=== PATIENT | male | born 1960 | race Caucasian/White ===

== ENCOUNTER → 2017-01-11 08:07 | Outpatient (CLI) | payer MEDICARE ==
[2016-04-20 12:29] VITALS: BMI 24.4
[~2017-01-11 08:07] MED LIST: BAYER CHEWABLE81 MG PO; CORDARONE200 MG PO; FUROSEMIDE40 MG PO; GEMFIBROZIL600 MG PO; HYDROCODONE-APA1 TAB PO; KLOR-CON 1010 MEQ PO; LOPRESSOR25 MG PO; NEURONTIN 300300 MG PO; REMERON15 MG PO; TRIAMCINOLONE A17 GM NASAL; XANAX0.5 MG PO
== END | disposition home or self-care (01) ==
LOC: D.CT 08:07
DX: K43.9 Ventral hernia without obstruction or gangrene (principal)

== ENCOUNTER → 2018-06-06 07:30 | Outpatient (CLI) | payer MEDICARE ==
[~2018-06-06] VITALS: Ht 175.3 cm; Wt 90.9 kg
--- NOTE | ~2018-06-06 | HEMODYNAMI ---
PATIENT:COLLEEN CHASE JR MEDICAL RECORD: [id number] : 56 LOCATION:[facility] ADMISSION DATE: 06/06/18 Generatedon:06/06/201810:39 Patient name: COLLEEN CHASE Patient #: [id number] SSN: : 1960 Date of study: 06/06/2018 Page: Of Hemodynamic Procedure Report Patient Data Patient Demographics Procedure consent was obtained First Name: COLLEEN Gender: Male Last Name: SALVATORE Suffix: [facility] Initial: JI : 1960 Patient #: [id number] Age: 57 year(s) Race: Unknown Additional ID: [id number] Contact details [address]: [address] [place] [address] State: [place] City: [place] Zip code: [address] Past Medical History Allergies Allergen Reaction Date Comments Reported Other allergy 12/08/2014 Keflex Statins 12/08/2014 Other allergy 06/06/2018 KEFLEX, VANCOMYCIN, STATINS-HMG COA REDUCTASE INHIBITORS Admission Admission Data Admission Date: 06/06/2018 Admission Time: 7:30 Lab Results Lab Result Date: 06/06/2018 Lab Result Time: 0:00 Biochemistry Name Units Result Min Max BUN mg/dl 11 --(-*--)-- 7 18 Creatinine mg/dl 0.9 --(-*--)-- 0.6 1.3 CBC Name Units Result Min Max Hemoglobin g/dl 15.7 --(--*-)-- 13.5 17.5 Procedure Procedure Types Cath Procedure Diagnostic Procedure LHC LHC w/Coronaries FFR/IVUS Intra-Coronary IVUS Initial Procedure Description Procedure Date Procedure Date: 06/06/2018 Procedure Start Time: 10:21 Procedure End Time: 10:37 Procedure Staff Name Function Hiro Gillis MD Performing Physician Stewart Medina RN Nurse Angelita Vallejo RT Monitor Aubrie Lara RT Scrub Procedure Data Cath Procedure Fluoroscopy Diagnostic fluoroscopy Total fluoroscopy Time: 3.9 time: 3.9 min min Diagnostic fluoroscopy Total fluoroscopy dose: dose: 1138 mGy 1138 mGy Contrast Material Contrast Material Type Amount (ml) Isovue 300 57 Entry Location Entry Primary Successful Side Size Upsize Upsize Entry Closure Mcgarry ccessful Closure Location (Fr) 1 (Fr) 2 (Fr) Remarks Device Remarks Radial Right 6 Fr Mechanical tr artery Short Compression Estimated blood loss: 10 ml Diagnostic catheters Device Type Used For End Catheter Placement DIAGNOSTIC [place] 110cm 5 Procedure Fr catheter ([id number]) DIAGNOSTIC AR 2 MOD 5 Fr Procedure catheter ([id number]) Procedure Complications No complications Procedure Medications Medication Administration Route Dosage Oxygen etCO2 Nasal cannula 2 l/min Lidocaine 2% added to field 20 Heparin Flush Bag added to field 2 bags (1000units/500ml NS) 0.9% NaCl I.V. 100 ml/hr Radial Cocktail I.A. 1 syringe (Verapomil 2mg/Nitro 400mcg/Heparin 1500units) Versed I.V. 2 mg Fentanyl I.V. 100 mcg Versed I.V. 2 mg Fentanyl I.V. 100 mcg Versed I.V. 1 mg Fentanyl I.V. 50 mcg Hemodynamics Rest HGB: 15.7 (g/dl) Heart Rate: 82 (bpm) Snapshots Pre Cath Intra NCS Post Cath Vital Signs Time Heart Resp SPO2 etCO2 NIBP (mmHg) Rhythm Pain Sedation Rate (ipm) (%) (mmHg) Status Level (bpm) 9:58:18 79 20 92 13.5 150/99(126) NSR 0 (11) 10(A) , No pain 10:02:13 70 14 94 32.3 148/98(117) NSR 0 (11) 10(A) , No pain 10:06:09 69 13 92 32.3 140/101(123) NSR 0 (11) 10(A) , No pain 10:10:05 69 12 94 17.2 145/98(121) NSR 0 (11) 10(A) , No pain 10:14:00 69 20 94 34.5 144/96(120) NSR 0 (11) 10(A) , No pain 10:17:56 69 17 93 25.5 142/95(119) NSR 0 (11) 10(A) , No pain 10:21:49 68 13 93 33 147/101(131) NSR 0 (11) 10(A) , No pain 10:25:43 68 16 92 16.5 140/99(118) NSR 0 (11) 9(A) , No pain 10:29:40 67 19 94 25.5 146/91(116) NSR 0 (11) 9(A) , No pain 10:33:40 66 19 93 16.5 136/90(108) NSR 0 (11) 9(A) , No pain 10:37:40 68 18 94 27.8 135/89(117) NSR 0 (11) 10(A) , No pain Medications Time Medication Route Dose Verified Delivered Reason Notes Effectiveness by by 9:57:07 Oxygen etCO2 2 l/min Hiro Buffie used for Nasal Carlin Medina RN procedure cannula 9:57:15 Lidocaine 2% added 20ml Hiro Hiro for local to vial Carlin Gillis MD anesthetic field 9:57:22 Heparin Flush added 2 bags Hiro Bosch used for Bag to Carlin Gillis MD procedure (1000units/500ml field NS) 9:57:31 0.9% NaCl I.V. 100 Hiro Buffie Per ml/hr Carlin Medina RN physician 10:19:28 Versed I.V. 2 mg Hiroradha Grantie for sedation Carlin Medina RN 10:19:33 Fentanyl I.V. 100 mcg Hiro Buffie for sedation Carlin Medina RN 10:22:48 Radial Cocktail I.A. 1 Hiro Hiro for (Verapomil syringe Carlin Gillis MD vasodilation 2mg/Nitro 400mcg/Heparin 1500units) 10:23:19 Versed I.V. 2 mg Hiro Buffie for sedation Carlin Medina RN 10:23:23 Fentanyl I.V. 100 mcg Hiro William for sedation Cralin Medina RN 10:26:48 Versed I.V. 1 mg Hiro Buffie for sedation Carlin Medina RN 10:26:53 Fentanyl I.V. 50 mcg Hiro Buffie for sedation Carlin Medina RN Procedure Log Time Note 9:17:28 Signed procedure consent form obtained from patient. 9:17:29 Time tracking: Regular hours (M-F 7:00 - 5:00) 9:17:33 Plan of Care:Hemodynamics will remain stable., Cardiac rhythm will remain stable., Comfort level will be maintained., Respiratory function will remain adequate., Patient/ family verbilizes understanding of procedure., Procedure tolerated without complication., Recovers from procedure without complications.. 9:23:05 Lab Result : BUN 11 mg/dl 9:23:05 Lab Result : Hemoglobin 15.7 g/dl 9:23:05 Lab Result : Creatinine 0.9 mg/dl 9:35:39 Patient allergic to Other allergyKEFLEX, VANCOMYCIN, STATINS-HMG COA REDUCTASE INHIBITORS 9:37:47 Stewrat Medina RN sent for patient. Start room use. 9:45:31 Patient received from Pre/Post Procedure Room to CCL 2 Alert and oriented. Tansferred to table in Supine position. 9:45:32 Warm blankets applied, and tato hugger turned on for patient comfort. 9:45:32 Correct patient and procedure confirmed by team. 9:45:33 ECG and BP/O2 sat monitors applied to patient. 9:57:07 Oxygen 2 l/min etCO2 Nasal cannula was administered by Stewart Medina RN; used for procedure; 9:57:15 Lidocaine 2% 20ml vial added to field was administered by Hiro Gillis MD; for local anesthetic; 9:57:22 Heparin Flush Bag (1000units/500ml NS) 2 bags added to field was administered by Hiro Gillis MD; used for procedure; 9:57:31 0.9% NaCl 100 ml/hr I.V. was administered by Stewart Medina RN; Per physician; 9:57:34 Vital chart was started 9:58:48 Baseline sample Acquired. 9:58:57 Rhythm: sinus rhythm 9:58:58 Full Disclosure recording started 9:59:08 H&P Date Dictated: 06/03/2018 Within 30 days and on chart., H&P Addendum completed by physician on day of procedure. (MUST COMPLETE FOR ALL OUTPATIENTS). 9:59:10 Pre-procedure instructions explained to patient. 9:59:12 Family in waiting room. 9:59:13 Patient NPO since Midnight. 9:59:17 Is the patient allergic to Iodine/contrast media? No. 9:59:27 Is patient on blood thinner?Yes 9:59:29 Was the patient premedicated? Yes 9:59:32 Patient diabetic? No. 9:59:37 Snore? Yes 9:59:39 Sleep apnea? No 9:59:49 Dentures? Yes IN TIGHT 9:59:56 Patient pain scale 0/10 ?. 10:00:02 IV patent on arrival in left forearm with 0.9% NaCl at [facility]. 10:00:09 Lab results completed and on chart. 10:00:13 Right Radial & Right Groin area was prepped with chlora-prep and draped in sterile fashion 10:00:14 Alarms reviewed by R. N. 10:00:15 Sharps counted by scrub and verified by R.N. 10:00:16 Physician paged 10:18:39 Physician arrived 10:18:39 --------ALL STOP TIME OUT------ 10:18:40 Final Timeout: patient, procedure, and site verified with staff and physician. All members of the team are in agreement. 10:18:42 Right Radial & Right Groin site verified by team. 10:18:46 Physical assessment completed. ASA score P 3 - A patient with severe systemic disease as per Hiro Gillis MD. 10:18:51 Sedation plan: IV Moderate Sedation Medication:Versed, Fentanyl 10:19:28 Versed 2 mg I.V. was administered by Stewart Medina RN; for sedation; 10:19:33 Fentanyl 100 mcg I.V. was administered by Stewart Medina RN; for sedation; 10:19:36 Use device set Radial Dx or PCI 10:19:37 ACIST Syringe (96180) opened to sterile field. 10:19:37 Medline Cath Pack ([id number]) opened to sterile field. 10:19:38 Bag Decanter (2002) opened to sterile field. 10:19:38 DIAGNOSTIC WIRE .035 260cm J wire (509762) opened to sterile field. 10:19:39 ACIST Hand Control (94596) opened to sterile field. 10:19:40 ACIST Manifold (22286) opened to sterile field. 10:19:40 Tegaderm 4 x 4 (1626W) opened to sterile field. 10:19:42 MBrace Wrist Support ([id number]) opened to sterile field. 10:19:48 SHEATH 6Fr Prelude Radial ([id number]) opened to sterile field. 10:21:14 Procedure started. 10:21:29 Local anesthetic to right radial artery with Lidocaine 2% by Hiro Gillis MD.INITIAL ACCESS ONLY 10:21:50 A 6 Fr Short sheath was inserted into the Right Radial artery 10:22:03 A DIAGNOSTIC [place] 110cm 5 Fr catheter (333675) was advanced over the wire and used for Procedure. 10:22:36 LV angiography performed. 10::48 Radial Cocktail (Verapomil 2mg/Nitro 400mcg/Heparin 1500units) 1 syringe I.A. was administered by Hiro Gillis MD; for vasodilation; 10:23:19 Versed 2 mg I.V. was administered by Stewart Medina RN; for sedation; 10::23 Fentanyl 100 mcg I.V. was administered by Stewart Medina RN; for sedation; 10::51 EF : 60 % 10:25:34 Catheter removed. 10:25:41 A DIAGNOSTIC AR 2 MOD 5 Fr catheter (714691U) was advanced over the wire and used for Procedure. 10:26:29 RCA angiography performed. 10::48 Versed 1 mg I.V. was administered by Stewart Medina RN; for sedation; 10::49 Catheter removed. 10::53 Fentanyl 50 mcg I.V. was administered by Stewart Medina RN; for sedation; 10:27:00 GUIDE 6FR XB 3.5 catheter ([id number]) opened to sterile field. 10:27:06 LCA angiography performed. 10:30:40 INFLATOR Merit BasixCompak (MR8490) opened to sterile field. 10:30:41 CHOICE PT Extra Support 182cm wire ([id number]) opened to sterile field. 10:30:43 [place] IVUS Catheter (68158O) opened to sterile field. 10:30:52 Proceeding to intervention. 10:31:05 6 Fr xb 3.5 guide catheter was inserted over the wire 10:31:11 cH pt ex wire advanced. 10:31:13 Wire advanced across lesion. 10:31:15 IVUS catheter advanced over wire. 10:33:25 IVUS catheter removed over wire. 10:33:34 Wire removed. 10:33:34 Guide catheter removed. 10:33:44 TR BAND Standard (QMU60SAE) opened to sterile field. 10:34:10 Sheath removed intact; hemostasis achieved with Mechanical Compression to the Right Radial artery. 10:34:19 Procedure ended.(Physican Out) 10:34:43 Fluoroscopy time 03.90 minutes. 10:34:47 Fluoroscopy dose: 1138 mGy 10:34:47 Flurop Dose total: 1138 10:34:52 Contrast amount:Isovue 300 57ml. 10:34:58 TR band inflated with 11cc of air. 10:35:18 Insertion/operative site no bleeding no hematoma. 10:35:35 Post-op/insertion site Right Radial artery dressed using a 4 x 4 and Tegaderm. 10:35:38 Post Procedure Pulses reassessed and unchanged 10:35:44 Post-procedure physical assessment completed. ASA score P 2 - A patient with mild systemic disease as per Hiro Gillis MD. 10:35:51 Post procedure rhythm: sinus rhythm 10:35:54 Estimated blood loss: 10 ml 10:36:16 Procedure type changed to Cath procedure, Diagnostic procedure, LHC, LHC w/Coronaries, FFR/IVUS, Intra-Coronary IVUS Initial 10:36:18 Procedure and supply charges have been captured, reviewed, submitted and are correct. 10:36:52 Procedure Complication : No complications 10:36:55 Vital chart was stopped 10:36:56 See physician's report for complete and final results. 10:37:05 Report given to Pre/Post Procedure Room. 10:37:08 Patient transfered to Pre/Post Procedure Room with Stretcher. 10:37:11 Procedure ended. 10:37:11 Full Disclosure recording stopped 10:37:16 End room use (Document Last) Device Usage Item Name Manufacture Quantity Catalog Number Hospital Part Current M inimal Lot# / Charge Number Stock Stock Serial# Code ACIST Syringe Acist 1 31684 313602 462838 672562 2 0 (76096) Medical [employer] Inc Medline Cath Cardinal 1 [id number] 507285 28779 310438 5 Pack Health ([id number]) Bag Decanter Microtek 1 613479 17689 887176 5 () Medical Inc. DIAGNOSTIC WIRE [place] 1 529322 762995 404448 784289 3 0 .035 260cm J wire (649848) ACIST Hand Acist 1 51020 745532 785502 631717 5 Control (96811) Medical Systems Inc ACIST Manifold Acist 1 80876 648725 977870 563457 5 (36981) Medical Systems Inc Tegaderm 4 x 4 3M 1 1626W 086597 842267 317728 5 (1626W) MBrace Wrist Advanced 1 140-0250-00 449571 20236 021184 5 Support Vascular (185955033) Dynamics SHEATH 6Fr Merit 1 [id number] 086262 579616 442803 5 Prelude Radial Medical ([id number]) DIAGNOSTIC Terumo 1 40-5013 889640 696844 434967 5 [place] 110cm 5 Fr catheter (175962) DIAGNOSTIC AR 2 Cardinal 1 [id number] 248662 111385 180827 2 0 MOD 5 Fr Health catheter (825670Q) GUIDE 6FR XB Cardinal 1 [id number] 597240 610724 555584 2 3.5 catheter Health (47168576) INFLATOR Merit Merit 1 SC3206 279718 607927 260570 1 5 Holographic Projection for Architecture (AE9326) CHOICE PT Extra [place] 1 [id number] 171554 687304 401655 5 Support 182cm Scientific wire (7554631G2) [place] 1 74003J 070993 879539 901027 8 [place] IVUS Catheter (20180A) TR BAND Terumo 1 [id number] 003177 033570 291032 4 0 Standard ([id number]) Signature Audit [place] Stage Time Signature Unsigned Intra-Procedure 06/06/2018 Angelita Vallejo 10:39:37 AM RT(R) Signatures Monitor : Angelita Vallejo Signature : RT Date : Time : [facility] [address] [place] [address]
--- NOTE | ~2018-06-06 | OP ---
PATIENT NAME: COLLEEN CHASE JR MEDICAL RECORD: [id number] :56 LOCATION:D.CAT ADMISSION DATE: SURGEON: MILLRE LOMBARDO MD DATE OF OPERATION: 06/06/2018 PROCEDURES: 1. Left heart catheterization. 2. Selective coronary angiography. 3. Left ventriculogram. 4. Intravascular ultrasound. INDICATION: Chest pain compatible with angina and coronary artery disease. PROCEDURE IN DETAIL: After informed consent was obtained and after a detailed description of risks, benefits as well as alternative therapies, the patient elected to proceed with angiogram and angioplasty. The right radial area was prepped and draped in normal sterile fashion. Right radial artery was cannulated via modified Seldinger technique with placement of 6-Azeri sheath. All catheters exchanged through this sheath. FINDINGS: The left ventriculogram was performed in standard 30-degree PAL view, reveals good cardiac wall motion throughout all segments. Overall ejection fraction estimated 60%. SELECTIVE CORONARY ANGIOGRAPHY: 1. Left main is with no significant angiographic disease. 2. Left anterior descending has a questionable area of stenosis in the proximal vessel; however, intravascular ultrasound reveals this is no greater than 20% to 30%. 3. Left circumflex has moderate irregularities, but no flow-limiting stenosis. 4. Right coronary artery has moderate irregularities, but no flow-limiting stenosis. OVERALL IMPRESSION: Minimal coronary artery disease is present. No flow-limiting stenosis. Continue medical management of the cardiac risk factors. TRANSINT:[id number] Voice Confirmation ID: [id number] DOCUMENT ID: [id number] MILLER LOMBARDO MD at 1816 CC: [id number] DICTATION DATE: 06/06/18 1037 WHARF TALLY CLERK: 06/06/18 1058 [facility] [address] [place] [id number]
[~2018-06-06 07:30] MED LIST changes: +BETAPACE 120 M120 MG PO; +FISH OIL 1,2001 CAP PO; +PLAVIX75 MG PO; +TOPROL XL25 MG PO
[2018-06-06 07:53] LABS: BASOPHILS 0.6 % (0-2); EOSINOPHILS 2.6 % (0-7); HEMATOCRIT 45.3 % (42.0-54.0); HEMOGLOBIN 15.7 g/dL (13.5-17.5); IMMATURE GRANULOCYTES 0.3 % (0-5); MCH 34.2 pg (26.0-34.0); MCHC 34.7 g/dL (31.0-37.0); MCV 98.7 fL (80.0-100.0); MEAN PLATELET VOLUME 10.3 fL (7.4-10.4); MONOCYTES 7.6 % (2-11); NEUTROPHILS 42.9 % (40-80); RBC 4.59 10x6/uL (4.20-6.10); RDW 13.2 % (11.5-14.5)
[2018-06-06 07:57] LABS: PLATELET COUNT 220 10x3/uL (130-400)
[2018-06-06 07:58] VITALS: BP 158/93; Ht 175.3 cm; Wt 90.9 kg
[2018-06-06 08:24] LABS: CALC OSMOLALITY 277 mosm/kg (275-300); CALCIUM 9.6 mg/dL (8.5-10.1); CARBON DIOXIDE 28.7 mmol/L (21.0-32.0); CHLORIDE - SERUM 102 mmol/L (98-107); CREATININE - SERUM 0.9 mg/dL (0.6-1.3); GLUCOSE 111 mg/dL (74-106); POTASSIUM - SERUM 4.3 mmol/L (3.5-5.1); SODIUM 139 mmol/L (136-145); UREA NITROGEN 11 mg/dL (7-18); eGFR NON AFRICAN AMERICAN > 90 mL/min (90-120)
== END | disposition home or self-care (01) ==
LOC: D.CATH 07:30
PROVIDERS: Internal Medicine Interventional Cardiology
DX: I25.10 Atherosclerotic heart disease of native coronary artery without angina pectoris (principal); Z01.812 Encounter for preprocedural laboratory examination

== ENCOUNTER → 2018-11-14 11:39 | Outpatient (CLI) | payer OTHER ==
[2018-06-06 07:58] VITALS: BMI 29.6
== END | disposition home or self-care (01) ==
LOC: D.RAD 11:39
DX: M79.604 Pain in right leg (principal); M25.551 Pain in right hip

== ENCOUNTER → 2018-12-23 09:25 | Outpatient (CLI) | payer OTHER ==
[2018-06-06 07:58] VITALS: BMI 29.6
== END | disposition home or self-care (01) ==
LOC: D.US 09:25
DX: R94.5 Abnormal results of liver function studies (principal)

== ENCOUNTER 2019-03-09 07:01 | Day surgery (SDC) | payer OTHER ==
[~2019-03-09] VITALS: Ht 175.3 cm; Wt 90.9 kg
[2019-03-09 08:30] LABS: HEMATOCRIT 46.8 % (42.0-54.0); HEMOGLOBIN 15.9 g/dL (13.5-17.5); MCH 32.4 pg (26.0-34.0); MCV 95.3 fL (80.0-100.0); MEAN PLATELET VOLUME 11.9 fL (7.4-10.4); RBC 4.91 10x6/uL (4.20-6.10); RDW 13.1 % (11.5-14.5); WBC 7.7 10x3/uL (4.8-10.8)
[2019-03-09] MEDS ORDERED: LISINOPRIL-HCT1 EAC4 PO (08:32)
[2019-03-09] MEDS ORDERED: ROXICODONE15 MG PO (08:32)
[2019-03-09 08:42] VITALS: BP 102/63; Ht 175.3 cm; Wt 90.9 kg
--- NOTE | 2019-03-09 16:44 | OP ---
PATIENT NAME: COLLEEN CHASE JR MEDICAL RECORD: [id number] :56 LOCATION:D.OPS ADMISSION DATE: SURGEON: GURMEET ARMANDO DO DATE OF OPERATION: 03/09/2019 PROCEDURE: Colonoscopy with polypectomy. INDICATIONS FOR PROCEDURE: Screening for colorectal cancer. SCOPE: Olympus video pediatric colonoscope. MEDICATIONS: Propofol 400 mg IV per anesthesia. ESTIMATED BLOOD LOSS: Minimal. WITHDRAWAL TIME: 17 minutes. COMPLICATIONS: None. FINDINGS: Informed consent was given. The patient was made comfortable with the above medication. After reaching an adequate level of sedation by slow IV push, the patient was placed on his left side. A digital rectal examination was performed and was normal. The endoscope was then advanced under direct visualization through the rectum to the cecum, confirmed by the presence of the appendiceal orifice and ileocecal valve. The endoscope was slowly withdrawn and the mucosa was carefully examined. The prep quality was fair. There were 2 polyps visualized on today's examination. They were both located in the transverse colon. They ranged in size from 3-5 mm in diameter. They were both sessile. They were both removed using a hot snare in 1 piece and completely retrieved. Retroflexion was performed in the rectum with a normal appearing rectal wall. There were no diverticula seen on today's examination. The endoscope was withdrawn from the patient. The patient tolerated the procedure well and there were no complications. IMPRESSION: 1. Two benign-appearing sessile polyps as described above, located in the transverse colon. Both removed using a hot snare. 2. Otherwise, normal colonoscopy. PLAN AND RECOMMENDATIONS: 1. Discharge home when recovery parameters are met. 2. Follow up biopsy specimen results. 3. Continue current diet. 4. Continue current medications. 5. Recall colonoscopy in 5 years for surveillance based on personal history of polyps. TRANSINT:[id number] Voice Confirmation ID: [id number] DOCUMENT ID: [id number] OPERATIVE REPORT [id number] COLLEEN CHASE GURMEET CABRAL DO at 1644 CC: [id number] DICTATION DATE: 03/09/19 0945 CONCIERGE MANAGER: 03/09/19 1239 [facility] 03/09/19 [place] [address]
== END 2019-03-09 10:45 | disposition home or self-care (01) ==
LOC: D.OPS 07:01
PROVIDERS: Anesthesiology; ATTEND Internal Medicine Gastroenterology
DX: Z12.11 Encounter for screening for malignant neoplasm of colon (principal); D12.3 Benign neoplasm of transverse colon; Z01.812 Encounter for preprocedural laboratory examination

== ENCOUNTER → 2019-11-16 09:08 | Outpatient (CLI) | payer OTHER ==
[2019-03-09 08:42] VITALS: BMI 29.6
[~2019-11-16 09:08] MED LIST changes: +LISINOPRIL-HCT1 EAC4 PO; +ROXICODONE15 MG PO
== END | disposition home or self-care (01) ==
LOC: D.RAD 09:08
PROVIDERS: ATTEND Emergency Medicine
DX: R05 Cough (principal); E83.52 Hypercalcemia